=== PATIENT | female | born 1975 | race Caucasian/White ===

== ENCOUNTER 2022-11-20 11:15 | Outpatient (CLI) | payer BC, SELFPAY ==
[2022-11-22 21:15] LABS: Rheumatoid Factor <10 IU/mL (0-14)
[2022-11-23 10:24] LABS: Anti-Nuclear Ab(ANA)IgG ELISA None Detected (None Detected)
== END 2022-11-20 11:16 | disposition home or self-care (01) ==
PROVIDERS: Visit Provider Otolaryngology
DX: R05.9 Cough, unspecified (principal)
CPT/HCPCS: 84443; 86039; 86431; 86618

== ENCOUNTER 2023-02-12 14:12 | Outpatient (CLI) | payer BC, SELFPAY ==
[2023-02-12 21:33] LABS: Albumin* 4.3 g/dL (3.3-5.0)
[2023-02-12 21:36] LABS: Alkaline Phosphatase* 90 U/L (40-150); Aspartate Amino Transferase* 67 U/L (12-35); Bilirubin Direct* 0.3 mg/dL (0.0-0.5); Bilirubin Total* 0.6 mg/dL (0.1-1.5); Total Protein* 7.4 g/dL (6.0-8.3)
[2023-02-12 21:37] LABS: Alanine Aminotransferase* 35 U/L (4-35)
== END 2023-02-12 14:13 | disposition home or self-care (01) ==
PROVIDERS: Visit Provider Otolaryngology
DX: K21.9 Gastro-esophageal reflux disease without esophagitis (principal); R05.9 Cough, unspecified
CPT/HCPCS: 80076

== ENCOUNTER 2025-10-11 14:44 | Outpatient (CLI) | payer BC, SELFPAY | END 2025-10-11 14:45 | disposition home or self-care (01) | PROVIDERS: PCP Physician Assistant Medical; Visit Provider Physician Assistant Medical | DX: K75.81 Nonalcoholic steatohepatitis (NASH) (principal); R73.03 Prediabetes; I10 Essential (primary) hypertension | CPT/HCPCS: 80053; 84443; 87086 ==